=== PATIENT | male | born 1995 | race Caucasian/White ===

== ENCOUNTER 2017-06-14 19:06 | Emergency (ER) | payer MEDICAID ==
[~2017-06-14] VITALS: Ht 182.9 cm; Wt 77.3 kg
[2017-06-14 19:11] VITALS: BP 105/63
== END 2017-06-14 20:41 | disposition home or self-care (01) ==
LOC: ED 20:35
DX: S60.221A Contusion of right hand, initial encounter (principal); G89.11 Acute pain due to trauma; W50.0XXA Accidental hit or strike by another person, initial encounter; Y93.89 Activity, other specified; Y92.89 Other specified places as the place of occurrence of the external cause; Y99.8 Other external cause status
CPT/HCPCS: 29260; 99284